=== PATIENT | male | born 1950 | race Two or more races ===

== ENCOUNTER 2023-09-09 15:22 | Inpatient (IN) | payer MEDICARE, OTHER ==
[~2023-09-09] VITALS: Ht 167.6 cm; Wt 77.1 kg
[2023-09-09 17:10] LABS: BASOPHILS # (AUTO) 0.2 K/uL (0.0-0.2); BASOPHILS % (AUTO) 1.9 % (0.0-2.0); EOSINOPHILS # (AUTO) 0.1 K/uL (0.0-0.7); EOSINOPHILS % (AUTO) 1.7 % (0.0-6.0); HEMATOCRIT 48 % (39-51); LYMPHOCYTES # (AUTO) 0.8 K/uL (0.8-4.8); LYMPHOCYTES % (AUTO) 9.1 % (20.0-44.0); MEAN CORPUSCULAR HEMOGLOBIN 31 PG (26.0-33.0); MEAN CORPUSCULAR HGB CONC 33 g/dl (31.0-36.0); MEAN CORPUSCULAR VOLUME 94 fL (80-96); MONOCYTES # (AUTO) 0.6 K/uL (0.1-1.30); MONOCYTES % (AUTO) 6.9 % (2.0-12.0); NEUTROPHILS # (AUTO) 6.8 K/uL (1.8-8.9); NEUTROPHILS % (AUTO) 80.4 % (43.0-81.0); PLATELET COUNT (AUTO) 268 K/uL (150-450); RED BLOOD CELL COUNT(AUTO) 5.11 MIL/uL (4.5-6.0); RED CELL DISTRIBUTION WIDTH 13.1 % (11.5-15.0); WHITE BLOOD COUNT (AUTO) 8.4 K/uL (4.3-11.0)
[2023-09-09 17:19] LABS: CALCIUM, SERUM 8.9 mg/dL (8.5-10.1); CARBON DIOXIDE 24 mmol/L (21-32); CHLORIDE 102 mmol/L (98-107); GLUCOSE 99 mg/dL (74-106); POTASSIUM 4.4 mmol/L (3.5-5.1); SODIUM SERUM 136 mmol/L (136-145); UREA NITROGEN, BLOOD 18 mg/dL (7-18)
[2023-09-09 17:24] LABS: ALANINE AMINOTRANSFERASE 25 U/L (12-78); ALBUMIN 3.6 g/dL (3.4-5.0); ALCOHOL, BLOOD < 3 mg/dL (0-10); ALKALINE PHOSPHATASE 99 U/L (46-116); ASPARTATE AMINOTRANSFERASE 14 U/L (15-37); BILIRUBIN,DIRECT 0.2 mg/dL (0.0-0.2); BILIRUBIN,TOTAL 0.7 mg/dL (0.2-1.0)
[2023-09-09 17:36] LABS: ACETAMINOPHEN <10 ug/ml (10-30); SALICYLATE 0.5 mg/dL (2.8-20.0)
[2023-09-09] MEDS ORDERED: LORAZEPAM INJ 2 MG/ML VIAL ONE (18:03)
[2023-09-09] MEDS ORDERED: OLANZAPINE 10 MG VIAL IM ONE (18:04)
[2023-09-09] MEDS: LORAZEPAM INJ 2 MG/ML VIAL IM ONE (18:11)
[2023-09-09] MEDS: OLANZAPINE 10 MG VIAL IM ONE (18:11)
[2023-09-09] MEDS ORDERED: ATOR20TA PO (20:39)
[2023-09-09] MEDS ORDERED: CHOL500L3 PO (20:39)
[2023-09-09] MEDS ORDERED: QUET50TA PO (20:39)
[2023-09-09] MEDS ORDERED: MEMA10TA PO (20:39)
[2023-09-09] MEDS ORDERED: DONE10TA44 PO (20:39)
[2023-09-09] MEDS ORDERED: POTA20TA83 PO (20:39)
[2023-09-09] MEDS ORDERED: QUET100T PO (20:39)
[2023-09-09] MEDS ORDERED: AMLO1CAP2 PO (20:39)
[2023-09-09] MEDS ORDERED: VENL150C58 PO (20:39)
[2023-09-09] MEDS ORDERED: SPIR50TA5 PO (20:39)
[2023-09-09] MEDS ORDERED: MAG HYDROX/AL HYDROX/SIMETH 30 ML UDC PO PRN (22:00)
[2023-09-09] MEDS ORDERED: ACETAMINOPHEN 325 MG TABLET PO PRN (22:00)
[2023-09-09] MEDS ORDERED: MAGNESIUM HYDROXIDE 30 ML UDC PO PRN (22:00)
[2023-09-09] MEDS: BLOOD SUGAR DIAGNOSTIC 1 EACH STRIP IN ONE (22:31)
[2023-09-09 23:52] VITALS: BP 125/77; TEMP 97.8; O2SAT 97
[2023-09-10 07:51] LABS: BASOPHILS % (AUTO) 0.3 % (0.0-2.0); EOSINOPHILS # (AUTO) 0.1 K/uL (0.0-0.7); EOSINOPHILS % (AUTO) 1.1 % (0.0-6.0); HEMATOCRIT 50 % (39-51); HEMOGLOBIN 16.7 g/dL (13.5-17.5); LYMPHOCYTES % (AUTO) 11.4 % (20.0-44.0); MEAN CORPUSCULAR HEMOGLOBIN 31 PG (26.0-33.0); MEAN CORPUSCULAR HGB CONC 33 g/dl (31.0-36.0); MEAN CORPUSCULAR VOLUME 94 fL (80-96); MONOCYTES # (AUTO) 0.7 K/uL (0.1-1.30); MONOCYTES % (AUTO) 7.5 % (2.0-12.0); NEUTROPHILS # (AUTO) 7.1 K/uL (1.8-8.9); NEUTROPHILS % (AUTO) 79.7 % (43.0-81.0); PLATELET COUNT (AUTO) 270 K/uL (150-450); RED BLOOD CELL COUNT(AUTO) 5.33 MIL/uL (4.5-6.0); RED CELL DISTRIBUTION WIDTH 12.9 % (11.5-15.0)
[2023-09-10 08:00] VITALS: BP 121/71; TEMP 98.4; O2SAT 97
[2023-09-10 08:10] LABS: ALBUMIN 3.5 g/dL (3.4-5.0); BILIRUBIN,TOTAL 1.1 mg/dL (0.2-1.0); CALCIUM, SERUM 9.2 mg/dL (8.5-10.1); CREATININE 0.9 mg/dL (0.6-1.3); POTASSIUM 4.1 mmol/L (3.5-5.1); TOTAL PROTEIN, SERUM 6.9 g/dL (6.4-8.2)
[2023-09-10] MEDS ORDERED: Medication Not On Formulary EA (Amlodipine Besylate/Benazepril (Lotrel 10-40 Mg Capsule) PO SCH (09:00)
[2023-09-10] MEDS: CHOLECALCIFEROL 1,000 UNIT TABLET (VIT D3) PO SCH (09:04)
[2023-09-10] MEDS: MEMANTINE HCL 5 MG TABLET PO SCH (09:04)
[2023-09-10] MEDS: AMLODIPINE BESYLATE 10 MG TABLET PO SCH (09:04)
[2023-09-10] MEDS: BENAZEPRIL HCL 20 MG TABLET PO SCH (09:04)
[2023-09-10] MEDS: SPIRONOLACTONE 25 MG TABLET PO SCH (09:04)
[2023-09-10] MEDS: ATORVASTATIN 10 MG TABLET PO SCH (09:04)
[2023-09-10] MEDS ORDERED: MAGN400O6 PO (09:50)
[2023-09-10] MEDS ORDERED: CHOL100043 PO (09:50)
[2023-09-10] MEDS ORDERED: BISA10SU61 RC (09:50)
[2023-09-10] MEDS ORDERED: NA P133E33 RC (09:50)
[2023-09-10] MEDS: QUETIAPINE FUMARATE 25 MG TABLET PO SCH ×2 (12:16→21:08)
[2023-09-10] MEDS: OXCARBAZEPINE 150 MG TABLET PO SCH (12:16)
[2023-09-10 16:00] VITALS: BP 116/76; TEMP 98.1; O2SAT 95
[2023-09-10] MEDS: LORAZEPAM 0.5 MG TABLET PO PRN (16:11)
[2023-09-10 20:00] VITALS: BP 101/77; TEMP 98; O2SAT 96
[2023-09-10] MEDS: DONEPEZIL 5 MG TABLET PO SCH (21:08)
[2023-09-10] MEDS: TEMAZEPAM 7.5 MG CAPSULE PO PRN (22:20)
[2023-09-11 08:00] VITALS: BP 145/79; TEMP 97.7; O2SAT 96
[2023-09-11 08:02] LABS: ALBUMIN 3.2 g/dL (3.4-5.0); BILIRUBIN,TOTAL 0.7 mg/dL (0.2-1.0); POTASSIUM 3.8 mmol/L (3.5-5.1); TOTAL PROTEIN, SERUM 6.4 g/dL (6.4-8.2)
[2023-09-11 16:00] VITALS: BP 109/72; TEMP 97.8; O2SAT 95
[2023-09-11] MEDS: QUETIAPINE FUMARATE 25 MG TABLET PO SCH (17:10)
[2023-09-11 20:00] VITALS: BP 118/71; TEMP 98.3; O2SAT 99
[2023-09-12 08:00] VITALS: BP 114/61; TEMP 98; O2SAT 96
[2023-09-12] MEDS: ENSURE ENLIVE CHOC 237 ML CAN PO SCH (08:48)
[2023-09-12 16:00] VITALS: BP 126/67; TEMP 98; O2SAT 96
[2023-09-12 20:00] VITALS: BP 113/65; TEMP 98.2; O2SAT 95
[2023-09-13 08:00] VITALS: BP 103/65; TEMP 98.6; O2SAT 95
[2023-09-13 16:00] VITALS: BP 116/74; TEMP 97.7; O2SAT 100
[2023-09-13 21:10] VITALS: BP_SYST 113; BP_SYST 143; BP_DIAS 58; BP_DIAS 87; TEMP 98.1; O2SAT 97
[2023-09-14 08:00] VITALS: BP 104/60; TEMP 97.7; O2SAT 98
[2023-09-14 16:00] VITALS: BP 132/82; TEMP 98.1; O2SAT 96
[2023-09-14] MEDS: QUETIAPINE FUMARATE 25 MG TABLET PO PRN (18:55)
[2023-09-14 20:23] VITALS: BP 112/66; TEMP 98.3; O2SAT 95
[2023-09-15 08:00] VITALS: BP 117/68; TEMP 98.1; O2SAT 97
[2023-09-15 08:03] LABS: BILIRUBIN,DIRECT 0.1 mg/dL (0.0-0.2); BILIRUBIN,TOTAL 0.7 mg/dL (0.2-1.0); TOTAL PROTEIN, SERUM 6.1 g/dL (6.4-8.2)
[2023-09-15 16:00] VITALS: BP 110/66; TEMP 98.2; O2SAT 96
[2023-09-15 20:53] VITALS: BP 103/69; TEMP 98.1; O2SAT 95
[2023-09-16 08:00] VITALS: BP 127/82; TEMP 97.7; O2SAT 98
[2023-09-16 16:00] VITALS: BP 125/73; TEMP 98.6; O2SAT 96
[2023-09-16 20:37] VITALS: BP 109/81; TEMP 97.9; O2SAT 96
[2023-09-17 07:02] LABS: APPEARANCE,URINE CLEAR (CLEAR); BILIRUBIN,URINE NEGATIVE (NEGATIVE); BLOOD, URINE NEGATIVE Ery/uL (NEGATIVE); COLOR,URINE YELLOW (YELLOW); KETONES,URINE NEGATIVE (NEGATIVE); LEUKOCYTE ESTERASE ,URINE NEGATIVE (NEGATIVE); NITRITE, URINE NEGATIVE (NEGATIVE); PROTEIN,URINE NEGATIVE (NEGATIVE); UGLUCOSE NEGATIVE (NEGATIVE); UROBILINOGEN,URINE 0.2 EU/dL (0.2)
[2023-09-17 08:00] VITALS: BP 111/76; TEMP 97.9; O2SAT 98
[2023-09-17] MEDS: OXCARBAZEPINE 150 MG TABLET PO SCH (12:31)
[2023-09-17] MEDS: QUETIAPINE FUMARATE 25 MG TABLET PO SCH (12:33)
[2023-09-17 16:00] VITALS: BP 118/68; TEMP 98.7; O2SAT 98
[2023-09-17 21:01] VITALS: BP 107/71; TEMP 98; O2SAT 94
[2023-09-18 08:00] VITALS: BP 138/68; TEMP 97.7; O2SAT 96
[2023-09-18 16:00] VITALS: BP 117/65; TEMP 97.8; O2SAT 97
[2023-09-18 20:00] VITALS: BP 120/71; TEMP 97.6; O2SAT 98
[2023-09-19 08:00] VITALS: BP 108/60; TEMP 98; O2SAT 96
[2023-09-19 16:00] VITALS: BP 123/67; TEMP 98; O2SAT 100
[2023-09-19 20:00] VITALS: BP 124/63; TEMP 98.4; O2SAT 97
[2023-09-20 08:00] VITALS: BP 108/70; TEMP 98.9; O2SAT 97
[2023-09-20 16:00] VITALS: BP 127/82; TEMP 98; O2SAT 96
[2023-09-20 20:00] VITALS: BP 118/74; TEMP 98; O2SAT 98
[2023-09-21 08:00] VITALS: BP 114/69; TEMP 98; O2SAT 94
[2023-09-21 16:00] VITALS: BP 125/60; TEMP 97.4; O2SAT 95
[2023-09-21 20:35] VITALS: BP 127/69; TEMP 97.9; O2SAT 95
[2023-09-22 08:00] VITALS: BP 116/71; TEMP 98.7; O2SAT 98
[2023-09-22 16:00] VITALS: BP 109/70; TEMP 98.1; O2SAT 95
[2023-09-22 20:44] VITALS: BP 129/76; TEMP 98.1
[2023-09-23 08:00] VITALS: BP 114/66; TEMP 98.6; O2SAT 98
[2023-09-23 16:00] VITALS: BP 117/66; TEMP 98.7; O2SAT 98
[2023-09-23 22:30] VITALS: BP 147/64; TEMP 98.1; O2SAT 93
[2023-09-24 08:00] VITALS: BP 108/55; TEMP 97.8; O2SAT 99
[2023-09-24] MEDS: OXCARBAZEPINE 150 MG TABLET PO SCH ×2 (12:33→16:04)
[2023-09-24 16:00] VITALS: BP 132/79; TEMP 98.1; O2SAT 97
[2023-09-24 20:26] VITALS: BP 118/62; TEMP 98.2; O2SAT 99
[2023-09-25 08:00] VITALS: BP 104/52; TEMP 98.6; O2SAT 95
[2023-09-25 16:00] VITALS: BP 131/77; TEMP 98.4; O2SAT 93
[2023-09-25 20:00] VITALS: BP 125/63; TEMP 98.7; O2SAT 99
[2023-09-26 08:00] VITALS: BP 123/71; TEMP 98.6; O2SAT 98
[2023-09-26 16:00] VITALS: BP 112/68; TEMP 98; O2SAT 99
[2023-09-26 20:00] VITALS: BP 116/60; TEMP 98.3; O2SAT 98
[2023-09-27 08:00] VITALS: BP 120/65; TEMP 97.6; O2SAT 97
[2023-09-27 16:00] VITALS: BP 125/66; TEMP 98.8; O2SAT 95
[2023-09-27 20:17] VITALS: BP 100/59; TEMP 98.4; O2SAT 100
[2023-09-27 21:30] VITALS: BP 112/75; TEMP 98; O2SAT 98
[2023-09-28 08:00] VITALS: BP 115/66; TEMP 97.6; O2SAT 99
[2023-09-28 16:00] VITALS: BP 125/70; TEMP 98.6; O2SAT 98
[2023-09-28 20:43] VITALS: BP 120/72; TEMP 98.4; O2SAT 98
[2023-09-29 08:00] VITALS: BP 121/62; TEMP 97.9; O2SAT 97
[2023-09-29 16:00] VITALS: BP 149/76; TEMP 98.6; O2SAT 98
[2023-09-29 20:50] VITALS: BP 100/70; TEMP 98; O2SAT 96
[2023-09-30 08:00] VITALS: BP 120/72; TEMP 97.9; O2SAT 98
[2023-09-30 09:00] VITALS: BP 123/72
== END 2023-09-30 11:00 | DRG 885 ==
LOC: ER 15:23 → GPS 21:02
PROVIDERS: ADMIT Psychiatry & Neurology Psychosomatic Medicine; ATTEND Internal Medicine
DX: F25.0 Schizoaffective disorder, bipolar type (principal); F03.92 Unspecified dementia, unspecified severity, with psychotic disturbance; F03.93 Unspecified dementia, unspecified severity, with mood disturbance; F03.94 Unspecified dementia, unspecified severity, with anxiety; F03.911 Unspecified dementia, unspecified severity, with agitation; F29 Unspecified psychosis not due to a substance or known physiological condition; F32.9 Major depressive disorder, single episode, unspecified; F39 Unspecified mood [affective] disorder; F41.9 Anxiety disorder, unspecified; Z79.899 Other long term (current) drug therapy; I10 Essential (primary) hypertension; Z73.6 Limitation of activities due to disability; R53.1 Weakness; R27.8 Other lack of coordination; Z91.81 History of falling
CPT/HCPCS: 36415; 80048-TC; 80053-TC; 80061-TC; 80076-TC; 82565-TC; 82962-TC; 85025-TC; 87081-TC; 97110-TC; 97116-TC; 97530-TC; A4349; G0480; J2060; J3490